=== PATIENT | male | born 1995 | race Caucasian/White ===

== ENCOUNTER 2020-06-09 08:23 | Emergency (ER) | payer OTHER, SELFPAY ==
[2020-06-09 08:32] VITALS: BP 149/75; PULSE 93; RESP 14; TEMP 37.2; O2SAT 100; BMI 38.2
[2020-06-09] MEDS: Fluorescein Sodium STRIP 1 STRIP EYE-LEFT (09:00)
[2020-06-09] MEDS: Tetracaine HCl/PF 0.5% Oph Sol 4 ML DROPS 1 DROP EYE-LEFT (09:00)
--- NOTE | 2020-06-09 09:02 | PC.NURSE ---
provider at bedside w dexter lamp for eye exam.
--- NOTE | 2020-06-09 09:04 | ED_ITS ---
HPI - Eye Problem General Chief complaint: Eye Problems Stated complaint: vomiting,eye pain Time Seen by Provider: 06/09/20 08:47 Source: patient Mode of arrival: ambulatory Limitations: no limitations History of Present Illness HPI Narrative: Left eye pain since yesterday. Patient tells me gradual pain in left eye. Was itching and playing with eye and now woke up with eyelid swelling. No vision changes. Does report pain behind the eye. No contact use. Has LAO on that side. Patient tells me he has also had chronic vomiting. Seen by GI and is taking compazine and zofran PRN, also dietary changes. He has now been referred to neurology as his GI doctor thinks this may be abdominal migraines. He has appointment 06/29. chief complaint: eye pain Onset (ago): day(s) (yesterday ) Onset description: gradual Duration: constant Location: left eye Eye Symptoms: pain and itching Place: home Mechanism: none Severity: moderate If Pain, Quality: sharp Associated symptoms: none Treatments Prior to Arrival: none Related Data Previous Rx's Medication Instructions Recorded [id number]-usdrxybkerucm-wbaa 1 cap PO Q8H PRN #10 cap 06/09/20 [Fioricet] Allergies Allergy/AdvReac Type Severity Reaction Status Date / Time No Known Allergies Allergy Unverified 05/14/20 19:48 [No Known Allergies*] Review of Systems Review of Systems: Yes all other systems are reviewed and are negative Constitutional: Constitutional: Reports no additional constitutional complaints, Denies body ache(s), Denies chills, Denies fever(s), Denies headache(s) and Denies weakness Eyes: Eyes: Reports no additional eye complaints, Denies blurry vision, Denies exophthalmos, Denies change in vision, Denies decreased night vision, Denies diplopia, Denies eye discharge, Reports irritation, Denies loss of peripheral vision, Denies loss of vision, Denies other visual disturbances, Reports photophobia, Denies spots in vision and Denies tunnel vision Comments: Retrorbital pain, eyelid swelling ENT: Reports system reviewed and no additional complaints, except as documented, Denies dizziness, Denies headache(s), Denies nasal congestion, Denies nasal discharge and Denies neck pain Cardiovascular: Cardiovascular: Reports no additional cardiovascular compl aints, Denies chest pain, Denies leg edema and Denies dyspnea Respiratory: Respiratory: Reports no additional respiratory complaints, Denies cough and Denies dyspnea Gastrointestinal: Gastrointestinal: Reports no additional gastrointestinal complaints, Denies abdominal pain, Denies diarrhea, Denies nausea, Reports vomiting and Denies hematemesis Genitourinary: Genitourinary: Denies urinary incontinence Musculoskeletal: Musculoskeletal: Reports no additional musculoskeletal complaints, Denies back pain, Denies arthralgias, Denies joint swelling, Denies neck pain, Denies numbness and Denies tingling Integumentary/Breasts: Skin/Breast: Reports system reviewed and no additional complaints, except as docu and Denies rash Neurologic: Reports system reviewed and no additional complaints, except as documented, Denies Abnormal speech present, Denies dizziness, Denies heada jimbo(s), Denies loss of vision, Denies numbness, Denies tingling and Denies weakness PMFSH Past Medical History Attestation statement: The following information was validated with the patient. Source: nursing notes reviewed Medical History Gastroparesis Social History Social History Alcohol intake: current Alcohol intake frequency: holidays/special occasions only Alcohol type: beer Smoking Status: Never smoker Use of substances other than those prescribed or required for medical reasons: No Advance Directives: Yes Advance Directives Information Provided: Yes Advance Directives on File: No Physical Exam Vital Signs: Vital Signs: Vital Signs Temp Pulse Resp BP Pulse Ox 06/09/20 08:32 99 F 93 14 149/75 H 100 Body Mass Index 38.2 Const: General: cooperative, healthy appearing, comfortable and no acute distress Orientation/consciousness: patient oriented x3 Limitations: no limitations HENMT: Head: Yes normal to inspection Ears: hearing grossly normal bilaterally General nose exam: Normal external nose present Face and sinus: Yes normal facial exam Mouth: Normal oral and palatal mucosa present Throat: Yes posterior oropharynx normal Eyes: Other: Fluorescein stain done with no uptake, abrasion or FB noted. IOP 12 bilateral. See visual acuity exam. General: appearance normal, both eyes and all related structures Visual Cole: normal visual cole by confrontation Alignment and Position: alignment normal Periorbital: periorbital findings normal Eyelids: Yes eyelids normal (mild upper eyelid medial swelling with mild erythema. NO obvious stye) Conjunctivae: conjunctivae normal Sclerae: sclerae normal Corneas: corneas normal Pupils: Equal, round and reactive pupils present EOM: EOMs intact bilaterally Direct Ophthalmoscopy: normal light reflex, no photophobia (mild photophobia), anterior chamber normal and photophobia Neck: Neck: Yes normal visual inspection Chest: Chest palpation & inspection: normal inspection of the chest Resp: Effort & Inspection: normal respiratory effort Auscultation: clear to auscultation bilaterally Cardio: Rate: regular rate Rhythm: regular rhythm Peripheral pulses: Peripheral pulses 2+ throughout GI: Inspection: Yes normal to inspection Palpation (GI): Soft to palpation and nontender Auscultation: normal bowel sounds Back/Spine/Pelvis: Thoracic/Lumbar Spine: thoracic and lumbar spine normal to inspection Skin: General skin exam: no rashes or lesions noted Neuro: General: patient oriented x3, no focal motor deficits and normal sensation to monofilament Cranial nerves: Yes Equal, round and reactive pupils present Cognition (Neuro): normal cognition Speech: No Abnormal speech present Gait exam (Neuro): Normal gait present Motor exam (neuro): 5/5 motor strength present throughout Extrem: General: Yes normal to inspection Course Course Course Narrative: CT head unremarkable. Eye exam is normal. Pain is improved after receiving IV Toradol, Reglan, Benadryl and normal saline bolus. Likely migraine. Reviewed findings with the patient. Reviewed worrisome signs and symptoms and when to return to the emergency department. Comfortable discharge home. MDM - Eye Problem MDM Narrative Medical decision making narrative: left retro-orbital eye pain since yesterday with no trauma or vision changes. Normal exam and IOP measurements. Less likely conjunctival FB, glaucoma. More likely migraine. Will check CT head. Also reporting chronic vomiting, no abdomial pain. W/u with GI unremarkable. Referred to neuro. Will check CT head to r/o ICH/lesion in setting of LAO/eye pain/vomiting. 1150- CT head negative less likely underlying ICH or lesion. more likely migraine with symptoms improved with IV Benadryl, Reglan, Toradol. Patient has follow-up with Neurology 06/29. Imaging Data CT head: Attestation: I personally reviewed and interpreted this imaging study as follows: My impression: unremarkable Radiologist's impression: FINDINGS: There is no evidence of acute intracranial hemorrhage or territorial infarction. No abnormal mass effect or midline shift is seen. Deras to white matter differentiation is well preserved. No extra-axial fluid collections are identified. The ventricles are normal in size. There is no abnormal attenuation within the brain parenchyma. The osseous structures and soft tissues are normal. The mastoid air cells and visualized portions of the paranasal sinuses are well aerated. IMPRESSION: No CT evidence of acute intracranial pathology. Discharge Plan Discharge Clinical Impression: Migraine Qualifiers: Migraine type: without aura Status migrainosus presence: without status migrainosus Intractability: not intractable Qualified Code(s): G43.009 - Migraine without aura, not intractable, without status migrainosus Patient Disposition: Home, Self-Care Instructions: Migraine Headache (ED) Additional Instructions: Warm compresses four times daily to affected side Prescriptions: New uqdksxdtrn-qjbbmucgcbzyp-svkv [Fioricet] 50-300-40 mg capsule 1 cap PO Q8H PRN (Reason: pain) Qty: 10 RF: 0 Referrals: Xiomara Patterson MD [Primary Care Provider] - 2 days Stand Alone Forms: Work/School Release Interventions: ED Discharge Assessment Last Done: 06/09/20 12:03 Discharge Date/Time: 06/09/20 12:10
--- NOTE | 2020-06-09 09:16 | CT_ITS ---
EXAMINATION: CT HEAD WITHOUT CONTRAST CLINICAL INFORMATION: Headache, vomiting. COMPARISON: None TECHNIQUE: Contiguous axial imaging was performed from the skull base to vertex without intravenous administration of contrast. This CT examination was performed using dose optimization techniques as appropriate, variously including the following: *Automated exposure control *Adjustment of mA and/or kV according to patient size (this includes techniques or standardized protocols for targeted exams where dose is matched to indication/reason for exam; i.e. extremities or head) *Use of iterative reconstruction technique DLP: 756 mGy-cm FINDINGS: There is no evidence of acute intracranial hemorrhage or territorial infarction. No abnormal mass effect or midline shift is seen. Deras to white matter differentiation is well preserved. No extra-axial fluid collections are identified. The ventricles are normal in size. There is no abnormal attenuation within the brain parenchyma. The osseous structures and soft tissues are normal. The mastoid air cells and visualized portions of the paranasal sinuses are well aerated. IMPRESSION: No CT evidence of acute intracranial pathology.
[2020-06-09] MEDS: Ketorolac Tromethamine 30 MG/ML VIAL IVPUSH (09:35)
[2020-06-09] MEDS: diphenhydrAMINE HCL 50 MG/ML VIAL 25 MG IVPUSH (09:35)
[2020-06-09] MEDS: 0.9 % Sodium Chloride 1,000 ML 999 ML IV (09:35)
[2020-06-09] MEDS: Metoclopramide HCl 10 MG/2 ML VIAL IVPUSH (09:36)
--- NOTE | 2020-06-09 09:43 | PC.NURSE ---
IV PLACED, MEDICATED PER EMAR. WCTM.
== END 2020-06-09 12:10 | disposition home or self-care (01) ==
PROVIDERS: Emergency Provider Emergency Medicine; PCP Internal Medicine
DX: G43.009 Migraine without aura, not intractable, without status migrainosus (principal)
CPT/HCPCS: 70450; 96361; 96374; 96375; 99284; J1200; J1885; J2765

== ENCOUNTER 2021-02-04 14:59 | Outpatient (REF) | payer BC, SELFPAY ==
[2021-02-04 15:39] LABS: MANUAL DIFF FLAG NO
[2021-02-04 15:43] LABS: Basophils Percent Auto 0.5 % (0-2); Eosinophils Absolute Auto 0.2 X10*3/uL (0.0-0.4); Hematocrit 48.2 % (42-52); Imm Gran Abs Auto 0.02 X10*3/uL (0.00-0.03); Imm Gran Pct Auto 0.3 % (0.0-0.4); Lymphocytes Absolute Auto 1.4 X10*3/uL (1.2-4.9); Lymphocytes Percent Auto 22.8 % (20-40); Mean Corpuscular HGB Conc 33.2 g/dl (31.0-36.0); Mean Corpuscular Hemoglobin 29.8 pg (27.0-33.0); Mean Corpuscular Volume 89.8 fL (80-98); Mean Platelet Volume 9.9 fL (9.4-12.4); Monocytes Absolute Auto 0.4 X10*3/uL (0.1-1.2); Monocytes Percent Auto 6.4 % (2-11); Platelet Count 275 X10*3/uL (160-400); Red Blood Count 5.37 X10*6/uL (4.60-5.80); Red Cell Distribution Width 11.8 % (11.0-16.0); White Blood Count 5.9 X10*3/uL (4.8-10.8)
[2021-02-04 16:07] LABS: Alanine Aminotransferase 53 U/L (0-40); Albumin Level 4.7 g/dL (3.5-5.0); Alkaline Phosphatase 90 U/L (39-117); Amylase 63 U/L (28-100); Anion Gap 12 (12-20); Aspartate Amino Transferase 26 U/L (5-37); Bilirubin Direct 0.2 mg/dL (0.0-0.5); Bilirubin Total 0.5 mg/dL (0.0-1.0); Blood Urea Nitrogen 14 mg/dL (9-16); Calcium 9.9 mg/dL (8.4-10.2); Carbon Dioxide 28 mmol/L (22-29); Chloride 103 mmol/L (96-108); Estimated Glomerular Filt Rate > 60; Glucose Random 123 mg/dL (60-115); Lipase 19 U/L (8-78); Sodium 139 mmol/L (135-145); Total Protein 7.6 g/dL (6.5-8.0)
[2021-02-04 16:25] LABS: Erythrocyte Sedimentation Rate 2 MM/HR (0-15)
== END 2021-02-04 15:00 | disposition home or self-care (01) ==
LOC: HO.LAB 14:59
PROVIDERS: PCP Internal Medicine; Visit Provider Psychiatry & Neurology Neurology
DX: G43.009 Migraine without aura, not intractable, without status migrainosus (principal)
CPT/HCPCS: 36415; 80048; 80076; 82150; 83690; 85025; 85652

== ENCOUNTER 2021-03-25 18:15 | Emergency (ER) | payer BC, SELFPAY ==
--- NOTE | ~2021-03-25 | XR_ITS ---
EXAMINATION: XR CHEST CLINICAL INFORMATION: Cough. COMPARISON: None TECHNIQUE: 2 views of the chest were obtained. FINDINGS: The lungs are clear. The cardiomediastinal silhouette is normal in size. There is no pleural effusion or pneumothorax. No acute osseous abnormality. XR/XR chest 2V IMPRESSION: No acute cardiopulmonary findings.
[2021-03-25 18:27] VITALS: BP 141/94; PULSE 93; RESP 18; TEMP 36.5; O2SAT 97; BMI 38.6
[2021-03-25] MEDS: Ondansetron ODT 4 MG TAB.RAPDIS TRANSLINGU (18:32)
[2021-03-25 18:54] LABS: COVID-19 Test Negative (Negative); IDNOW Serial# 9DD0AD1C
--- NOTE | 2021-03-25 20:12 | ED.URI ---
HPI - URI/Sore Throat General Chief Complaint: Nausea/Vomiting/Diarrhea Stated Complaint: Cough,Vomiting,Sob Time Seen by Provider: 03/25/21 19:45 Source: patient Mode of arrival: ambulatory Limitations: no limitations History of Present Illness HPI Narrative: 25-year-old male with a past medical history of gastroparesis and migraine headaches presenting to the ED with complaints of URI symptoms which include runny nose/nasal congestion and a productive cough with clear/white/blood streak sputum production for the past 2 weeks worse today. Reports that he also has intermittent headaches and has been having a headache since his symptoms started and is taking Fioricet for his pain. He reports symptomatic relief with his Fioricet. He reports that he has been taking Robitussin without coating and no symptomatic relief therefore he switched to DayQuil and only mild symptomatic relief. He denies any measured fevers, dizziness, neck pain/stiffness, chest pain, shortness of breath, dyspnea on exertion, orthopnea, abdominal pain, diarrhea, recent travel or sick contacts or any other symptoms complaints or concerns at this time. MD elicited complaint: cough, rhinorrhea, nasal congestion and other (Migraine headaches with associated nausea/vomiting) Pertinent past history: other (Migraine headache) Onset (ago): week(s) (Two weeks worse today) Consistency: constant and progressively worsening Severity: moderate Description of mucous: clear, watery, yellow and other (Blood streak) Able to tolerate fluids by mouth: Yes Exacerbating factors: other (Coughing) Relieving factors: nothing Associated symptoms: headache, rhinorrhea, nasal congestion and cough Treatments prior to arrival: other (See above) Related Data Previous Rx's Medication Instructions Recorded jnmjonhnur-yyktoupztuvua-vloytrhk 1 cap PO Q8H PRN #10 cap 06/09/20 50 mg-300 mg-40 mg capsule (Fioricet) acetaminophen 300 mg-codeine 30 mg 1 tab PO Q8H PRN #10 tab 03/25/21 tablet azithromycin 250 mg tablet See Rx Instructions .ROUTE 03/25/21 .COMPLEX #6 tab codeine 10 mg-guaifenesin 100 mg/5 5 ml PO Q6H PRN #120 ml 03/25/21 mL oral liquid (Guaifenesin AC) ibuprofen 800 mg tablet 800 mg PO Q8H PRN #14 tab 03/25/21 ondansetron HCl 4 mg tablet 4 mg PO Q8H PRN #14 tab 03/25/21 (Zofran) prednisone 20 mg tablet 40 mg PO DAILY 5 Days #10 tab 03/25/21 Allergies Allergy/AdvReac Type Severity Reaction Status Date / Time No Known Allergies Allergy Unverified 05/14/20 19:48 [No Known Allergies*] Review of Systems Review of Systems: Constitutional : No fevers, no chills, no night sweats, no malaise, no fatigue, No changes in activity, No lethargy, No recent prior head injury, No agitation ENT/Mouth : Positive nasal congestion/rhinorrhea No Ear Pain Eyes: No Eye Pain, No Swelling, No Redness, No Foreign Body, No Vision Changes Cardiovascular : No Chest Pain, No SOB Respiratory : Positive cough with sputum production Gastrointestinal : Positive nausea/vomiting, No abdominal Pain Genitourinary : No Dysuria, No Urinary Frequency, No Urinary Incontinence, No Urgency, No Flank Pain Musculoskeletal : No joint pain, No neck stiffness, No back pain/injury Skin : No lacerations Neuro : Positive headache, No unsteady gait, No Paresthesias, No Loss of Consciousness, No altered mental status, No dizziness Denies past medical history of HIV, recent trauma, coagulopathy, recent spinal/ epidural procedure, new medication, URI symptoms, close contacts with similar symptoms, tick bite, or known CO2 exposure. Yes all other systems are reviewed and are negative [facility] Past Medical History Attestation statement: The following information was validated with the patient. Medical History Gastroparesis Social History Social History Alcohol intake: current Alcohol intake frequency: holidays/special occasions only Alcohol type: beer Advance Directives: No Advance Directives Information Provided: Yes Physical Exam Vital Signs: Vital Signs: Last Vital Signs Temp 97.7 F 03/25/21 18:27 Pulse 93 03/25/21 18:27 Resp 18 03/25/21 18:27 BP 141/94 H 03/25/21 18:27 Pulse Ox 97 03/25/21 18:27 Body Mass Index 38.6 Vital signs have been reviewed as normal and appeared to be correct. Blood pressure hypertensive 141/94 Heart rate normal. Respiration rate normal. Temperature normal. Oxygen saturation normal. Appearance: Alert. Oriented X3. No acute distress. Head: Normal external exam. Normocephalic. Atraumatic. Able to rotate head bilaterally. Eyes: PERRLA. EOMI. No nystagmus noted. Conjunctiva and sclera normal. Eyelids normal. Corneal reflex normal. ENT: EAC normal. TM's Normal. Hearing normal. Pharynx normal. Uvula midline. tongue midline. Moist mucous membranes. No trismus noted. No drooling noted. No muffled voice noted. Neck: Normal inspection. Neck supple. FROM. No adenopathy. Thyroid Normal. No meningeal signs. No neck mass noted. CVS: Normal heart rate and rhythm. Heart sound normal. No murmurs noted. Pulses normal throughout. Respiratory: No respiratory distress. Painless inspiration. Breath sounds normal. No wheezes/rales/rhonchi noted. Chest nontender. No accessory muscle usage noted or decreased air movement noted. Back: Full range of motion noted. Skin: Skin warm and dry. Normal skin color. Normal skin turgor. No rashes/lesions/lacerations noted. Extremities: Extremities exhibit normal range of motion. Extremities nontender. Able to shrug shoulders bilaterally and keep up against resistance. Neuro: Oriented X 3. No motor deficit. No sensory deficit. Reflexes normal. Moving all extremities. No focal motor deficits. Cranial nerves II-XI intact bilaterally. Facial strength normal. Normal cognition. Speech normal. Gait normal. Strength 5/5 throughout. No pronator drift. No tremor noted. No fasciculations noted. Muscle tone normal throughout. No asterixis noted. Zilfwp-ko-offo test normal. Heel to roa test normal. Tandem gait normal. Does not sway with eyes open. Romberg test negative. Rapid alternating movement upper extremity normal. Rapid alternating movement lower extremity normal. Hand drop from overhead-Mrs. face. No rigidity noted. NIHSS score 0. Course Course Course Narrative: 25-year-old male presenting to the ED with URI symptoms for the past 2 weeks worse today with associated migraine headaches with nausea/vomiting. He reports his migraine headache is similar when compared to prior. Multiple zwfp-eqv-xpaqztb treatments in mild to no symptomatic relief. No recent travel or sick contacts. On exam patient is alert and oriented x3. Not in any acute distress. No signs of sepsis. Neck is soft and supple. Patient has full range of motion of the neck. Lungs clear to auscultation. CV RRR. Rapid COVID negative and chest x-ray negative for any acute processes. Therefore at this time will DC home with antibiotics and symptomatic treatment instructions to return if any new or worsening symptoms to follow up with primary care provider. Patient understands agrees with this plan. MDM - URI/Sore Throat Medical Records Attestation: I reviewed the patient's medical records. Lab Data Attestation: I reviewed the patient's lab results. Labs: Lab Results 03/25/21 Range/Units 18:33 COVID-19 ([facility]) Negative (Negative) COVID-19 Clin Com See Note Discharge Plan Discharge Clinical Impression: Migraine headache, Acute upper respiratory infection Patient Disposition: Home, Self-Care Instructions: Migraine Headache (ED), Upper Respiratory Infection (ED) Prescriptions: New azithromycin 250 mg tablet See Rx Instructions .ROUTE .COMPLEX Qty: 6 RF: 0 ibuprofen 800 mg tablet 800 mg PO Q8H PRN (Reason: pain) Qty: 14 RF: 0 ondansetron HCl [Zofran] 4 mg tablet 4 mg PO Q8H PRN (Reason: nausea and vomiting) Qty: 14 RF: 0 prednisone 20 mg tablet 40 mg PO DAILY 5 Days Qty: 10 RF: 0 acetaminophen-codeine 300-30 mg tablet 1 tab PO Q8H PRN (Reason: pain) Qty: 10 RF: 0 codeine-guaifenesin [Guaifenesin AC] 10-100 mg/5 mL liquid 5 ml PO Q6H PRN (Reason: cold symptoms) Qty: 120 RF: 0 No Action tnoejvbrlt-eaxzlvsjliyho-qbbo [Fioricet] 50-300-40 mg capsule 1 cap PO Q8H PRN (Reason: pain) Qty: 10 RF: 0 Referrals: Physician,Unknown [Primary Care Provider] - 2 days (your pcp) Stand Alone Forms: Work/School Release Print Language: Angolan
[2021-03-25 20:23] VITALS: BP 136/87; PULSE 86; RESP 16; O2SAT 97
[2021-03-25] MEDS: guaiFEN/Codeine SF 200/20/10ML 10 ML LIQUID PO (20:43)
== END 2021-03-25 20:47 | disposition home or self-care (01) ==
PROVIDERS: Emergency Provider Internal Medicine
DX: G43.909 Migraine, unspecified, not intractable, without status migrainosus (principal); J06.9 Acute upper respiratory infection, unspecified; R05 Cough; R06.02 Shortness of breath; Z20.822 Contact with and (suspected) exposure to COVID-19; Z79.899 Other long term (current) drug therapy
CPT/HCPCS: 36415; 71046; 87635; 99283

== ENCOUNTER 2021-09-16 13:41 | Outpatient (REF) | payer BC, SELFPAY ==
[2021-09-16 14:36] LABS: Anion Gap 14 (12-20); Blood Urea Nitrogen 10 mg/dL (9-16); Calcium 10.1 mg/dL (8.4-10.2); Carbon Dioxide 26 mmol/L (22-29); Chloride 107 mmol/L (96-108); Estimated Glomerular Filt Rate > 60; Glucose Random 99 mg/dL (60-115); Potassium 4.5 mmol/L (3.3-5.1); Sodium 142 mmol/L (135-145)
[2021-09-16 14:55] LABS: Erythrocyte Sedimentation Rate 2 MM/HR (0-15)
[2021-09-17 05:11] LABS: Lyme Abs Screen <0.90 index
[2021-09-17 08:21] LABS: Syphilis Screen Nonreactive (Nonreactive)
[2021-09-17 12:36] LABS: Anti Nuclear Antibody Screen NEGATIVE (NEGATIVE)
== END 2021-09-16 13:42 | disposition home or self-care (01) ==
LOC: HO.LAB 13:41
PROVIDERS: Visit Provider Psychiatry & Neurology Neurology
DX: G43.009 Migraine without aura, not intractable, without status migrainosus (principal)
CPT/HCPCS: 36415; 80048; 85652; 86038; 86039; 86617; 86618; 86780

== ENCOUNTER 2022-11-08 04:32 | Emergency (ER) | payer BC, SELFPAY ==
--- NOTE | ~2022-11-08 | XR_ITS ---
EXAMINATION: XR CHEST CLINICAL INFORMATION: Cough COMPARISON: None TECHNIQUE: 2 views of the chest were obtained. FINDINGS: Normal symmetric lung volumes. No parenchymal consolidation. No pleural effusion. No pneumothorax. Cardiomediastinal silhouette and pulmonary vascularity are within normal limits. No acute osseous abnormalities. XR/XR chest 2V IMPRESSION: Clear lungs.
[2022-11-08 04:57] VITALS: BP 144/89; PULSE 66; RESP 16; TEMP 36.7; O2SAT 97; BMI 38.0
[2022-11-08 05:29] VITALS: BP 126/83; PULSE 81; RESP 18; TEMP 36.4; O2SAT 97
[2022-11-08 06:00] LABS: COVID-19 Test Negative (Negative); IDNOW Serial# 16C4AD1C; IDNOW Serial# BCCEAD1C; Influenza A Negative (Negative); Influenza B2 Negative (Negative)
--- OUTSIDE RECORDS SUMMARY | 2022-11-08 06:02 | XMS_ITS | Continuity of Care Document ---
:1995 Author Organization [facility] Address Unavailable , Care Team Providers Name Role Phone Isabel BARROS, Destinee Mooney Primary Care Physician Encounter [facility] Date(s): 11/16/21 - 12/16/21 [facility] Immunizations Given and Recorded Vaccine Date Status Refusal Reason SARS-CoV-2 (COVID-19) Ad26 vaccine 01/15/21 Given
--- NOTE | 2022-11-08 06:23 | ED.URI ---
HPI - URI/Sore Throat General Chief Complaint: Upper Respiratory Symptoms Stated Complaint: Coughing, stuffy, insomnia Time Seen by Provider: 11/08/22 06:18 Source: patient Mode of arrival: ambulatory Limitations: no limitations History of Present Illness HPI Narrative: Patient comes emergency room complaining of right ear pain for which he already received antibiotics and also stuffy nose. Patient states he has been having the symptoms for over 2 weeks. Patient complaining of coughing, no fever chills Related Data Previous Rx's Medication Instructions Recorded axmqezrvzg-qwnmptuuiijyy-bxugnhmd 1 cap PO Q8H PRN pain #10 caps 06/09/20 50 mg-300 mg-40 mg capsule (Fioricet) acetaminophen 300 mg-codeine 30 mg 1 tab PO Q8H PRN pain #10 tabs 03/25/21 tablet azithromycin 250 mg tablet See Rx Instructions PO .COMPLEX #6 03/25/21 tabs codeine 10 mg-guaifenesin 100 mg/5 5 ml PO Q6H PRN cold symptoms #120 03/25/21 mL oral liquid (Guaifenesin AC) mL cyclobenzaprine 10 mg tablet 10 mg PO Q8H Muscle spasm #10 tabs 03/25/21 ibuprofen 800 mg tablet 800 mg PO Q8H PRN pain #14 tabs 03/25/21 ondansetron HCl 4 mg tablet 4 mg PO Q8H PRN nausea and 03/25/21 (Zofran) vomiting #14 tabs prednisone 20 mg tablet 40 mg PO DAILY rash 5 days #10 tabs 03/25/21 azithromycin 250 mg tablet 250 mg PO DAILY 4 days #4 tabs 03/26/21 (Zithromax Z-Larry) codeine 10 mg-guaifenesin 100 mg/5 5 ml PO Q6H PRN cough #120 mL 03/26/21 mL oral liquid (Guaifenesin AC) cyclobenzaprine 5 mg tablet 5 mg PO TID PRN muscle spasm #10 03/26/21 tabs ondansetron HCl 4 mg tablet 4 mg PO Q6H PRN nausea and 03/26/21 (Zofran) vomiting #10 tabs prednisone 20 mg tablet 40 mg PO DAILY 3 days #6 tabs 03/26/21 benzonatate 100 mg capsule 100 mg PO TID PRN cough #14 caps 11/08/22 levofloxacin 500 mg tablet 500 mg PO DAILY #9 tabs 11/08/22 Allergies Allergy/AdvReac Type Severity Reaction Status Date / Time No Known Allergies Allergy Unverified 05/14/20 19:48 [No Known Allergies*] Review of Systems Review of Systems: Constitutional : No Weight loss, No Fever, No Chills, No Night Sweats, No Fatigue, No Malaise ENT/Mouth : N complaining of hoarse voice, no trouble swallowing, complaining of nasal congestion Eyes: No Eye Pain, No Swelling, No Redness, No Foreign Body, No Discharge, No Vision Changes Cardiovascular : No Chest Pain, No SOB, No Dyspnea on Exertion, No Orthopnea, No Edema, No Palpitations Respiratory : Complaining of Cough, No Sputum, No Wheezing, No Smoke Exposure, No Dyspnea Gastrointestinal : No Nausea, No Vomiting, No Diarrhea, No Constipation, No abdominal Pain, No Hematochezia, No Melena Genitourinary : no irregular bleeding, No Dysuria, No Urinary Frequency, No Hematuria, No Urinary Incontinence, No Urgency, No Flank Pain, No Urinary Flow Changes, No Hesitancy Musculoskeletal : No joint pain, No Myalgias, No Joint Swelling Skin : No Skin Lesions, No rash Neuro : No Weakness, No Numbness, No Paresthesias, No Loss of Consciousness, No Dizziness, No Headache Psych : No Anxiety/Panic, No Depression, No SI/HI/AH/VH, No Social Issues, Heme/Lymph: No Bruising, No Bleeding,No Lymphadenopathy Endocrine : No Polyuria, No Polydipsia, No Temperature Intolerance FORMERLY [facility] Past Medical History Medical History Gastroparesis Social History Social History Alcohol intake: current Alcohol intake frequency: holidays/special occasions only Alcohol type: beer Advance Directives: No Physical Exam Vital Signs: Vital Signs: Last Vital Signs Temp 97.6 F 11/08/22 05:29 Pulse 81 11/08/22 05:29 Resp 18 11/08/22 05:29 BP 126/83 11/08/22 05:29 Pulse Ox 97 11/08/22 05:29 O2 Del Method 11/08/22 05:29 BMI result Body Mass Index 38.0 Const: Other: Appearance: Alert. Oriented X3. No acute distress. Eyes: Pupils equal, round and reactive to light. ENT: Erythematous oropharynx, otitis media on the right side Neck: Normal inspection. Neck supple. No lymph nodes noted. No crepitus CVS: Normal heart rate and rhythm. Pulses normal. Normal S1 and S2 Respiratory: No respiratory distress. Breath sounds normal. No Wheezing. No rales Abdomen: Soft and nontender. No rigidity. No distention. Skin: Skin warm and dry. Normal skin color. Normal skin turgor. Extremities: No lower extremity edema. No Lacerations. No Rash Neuro: Oriented X 3. No motor deficit. No sensory deficit. Moving all extremities. No slurred speech. CN 2 through 12 grossly intact Psych: calm, cooperative, normal affect Course Course Course Narrative: -patient completed a course of Augmentin for the ear infection, still present. We will try levofloxacin this time. -chest x-ray negative Medical Decision Making Medical Decision Making MDM Narrative: -patient still has otitis media, failed treatment with Augmentin, will try levofloxacin -patient given p.o. dexamethasone and viscous lidocaine for comfort. -patient requesting a prescription for cough Lab Data Labs: Lab Results 11/08/22 11/08/22 Range/Units 05:36 05:36 COVID-19 (NAWAF) Negative (Negative) COVID-19 Clin Com See Note Influenza Type A (TITO) Negative (Negative) Influenza Type B (TITO) Negative (Negative) Influenza A & B Note See Note Discharge Plan Discharge Clinical Impression: Otitis media, Bronchitis Patient Disposition: Home, Self-Care Instructions: Ear Infection (ED), Acute Bronchitis (ED) Additional Instructions: Please follow-up with your primary care physician tomorrow. If you have any worsening or new symptoms, please return to the emergency room or call 911 Prescriptions: New benzonatate 100 mg capsule 100 mg PO TID PRN (Reason: cough) Qty: 14 0RF levofloxacin 500 mg tablet 500 mg PO DAILY Qty: 9 0RF No Action jjucifbnle-vqnxyazrsrhvn-btde [Fioricet] 50-300-40 mg capsule 1 cap PO Q8H PRN (Reason: pain) Qty: 10 0RF azithromycin 250 mg tablet See Rx Instructions .ROUTE .COMPLEX Qty: 6 0RF Rx Instructions: take 500 mg today (day 1), then 250 mg for 4 days (days 2-5) ibuprofen 800 mg tablet 800 mg PO Q8H PRN (Reason: pain) Qty: 14 0RF ondansetron HCl [Zofran] 4 mg tablet 4 mg PO Q8H PRN (Reason: nausea and vomiting) Qty: 14 0RF prednisone 20 mg tablet 40 mg PO DAILY 5 Days Qty: 10 0RF acetaminophen-codeine 300-30 mg tablet 1 tab PO Q8H PRN (Reason: pain) Qty: 10 0RF codeine-guaifenesin [Guaifenesin AC] 10-100 mg/5 mL liquid 5 ml PO Q6H PRN (Reason: cold symptoms) Qty: 120 0RF cyclobenzaprine 10 mg tablet 10 mg PO Q8H Qty: 10 0RF ondansetron HCl [Zofran] 4 mg tablet 4 mg PO Q6H PRN (Reason: nausea and vomiting) Qty: 10 0RF azithromycin [Zithromax Z-Larry] 250 mg tablet 250 mg PO DAILY 4 Days Qty: 4 0RF Rx Instructions: start on day 2 of therapy codeine-guaifenesin [Guaifenesin AC] 10-100 mg/5 mL liquid 5 ml PO Q6H PRN (Reason: cough) Qty: 120 0RF Rx Instructions: This medication may cause drowsiness, use with caution no driving for 4 hours after taking cyclobenzaprine 5 mg tablet 5 mg PO TID PRN (Reason: muscle spasm) Qty: 10 0RF prednisone 20 mg tablet 40 mg PO DAILY 3 Days Qty: 6 0RF
[2022-11-08] MEDS: levoFLOXacin 500 MG TABLET PO (06:37)
[2022-11-08] MEDS: dexAMETHasone 4 MG TABLET PO (06:37)
[2022-11-08] MEDS: Lidocaine HCl Viscous 2 % 15 ML SOLUTION MUCOUS MEM (06:38)
== END 2022-11-08 06:47 | disposition home or self-care (01) ==
PROVIDERS: Emergency Provider Emergency Medicine; PCP Internal Medicine
DX: H66.91 Otitis media, unspecified, right ear (principal); J40 Bronchitis, not specified as acute or chronic; Z20.822 Contact with and (suspected) exposure to COVID-19
CPT/HCPCS: 71046; 87502; 87635; 99282; 99283; J8540

== ENCOUNTER → 2025-05-30 13:48 | Outpatient (BNVA) | payer OTHER, SELFPAY | PROVIDERS: PCP Internal Medicine; Visit Provider Physician Assistant | DX: S01.81XA Laceration without foreign body of other part of head, initial encounter (principal); W20.8XXA Other cause of strike by thrown, projected or falling object, initial encounter; Y93.89 Activity, other specified; Y92.9 Unspecified place or not applicable; Y99.9 Unspecified external cause status | CPT/HCPCS: 12001; 99202 ==

== ENCOUNTER 2025-05-30 15:43 | Outpatient (AMB) | payer OTHER, SELFPAY ==
[2025-05-30 15:51] VITALS: BP 124/72; PULSE 75; RESP 15; TEMP 36.9; O2SAT 99; BMI 40.3
--- NOTE | 2025-05-30 15:51 | AM.OFFWIN_ITS ---
Intake Vital Signs 05/30/25 15:51 Height 6 ft Weight 297 lb BMI 40.3 BP 124/72 Blood Pressure Location Rt brachial Position Sitting Respiration 15 Pulse 75 Pulse Source Pulse Oximeter Temp 98.4 F Temp Source Oral Pulse Oximetry (%) 99 Oxygen Delivery Method Room Air Intake Visit Reasons: EP split on forehead Intake Note: Pt is here today c/o laceration between eye brows: Due to cutting wood today at home today Allergies No Known Allergies (No Known Allergies*) Allergy (Unverified 05/30/25 15:52) HPI HPI Comments History of Present Illness Details This is a 29-year-old male presenting for evaluation of a facial laceration. Patient states at 1:00 p.m. he was in [facility] cutting wood with an axe. He was wearing safety glasses when a piece of wood hit the axe awkwardly, bounced and hit him in the face. There was no loss of consciousness. Patient is unaware if the wood itself cut his face or if his safety glasses cut him. Patient's tetanus immunization was updated 2 years ago. Patient denies having any visual changes, pain in his eyes, headache or lightheadedness. Patient cleaned the lesion out with soap and water prior to coming for medical evaluation. [facility]LY [facility] Medical History Gastroparesis Social History Alcohol intake: current Alcohol intake frequency: holidays/special occasions only Alcohol type: beer Review of Systems Const Details: No history of LOC following incident. All systems reviewed & are unremarkable except as noted in HPI and below Reports no additional complaints and Denies headache(s) Eyes Denies blurry vision, Denies exophthalmos, Denies irritation, Denies loss of peripheral vision, Denies loss of vision and Denies other visual disturbances ENT Reports no additional complaints, Denies dizziness, Denies headache(s) and Denies disequilibrium Card Denies syncope Musc Reports no additional complaints and Denies abnormal gait Skin/Breast Details: laceration adjacent to left eyebrow Reports bleeding lesions Neuro Reports no additional complaints, Denies abnormal gait, Denies confusion, Denies dizziness, Denies syncope, Denies headache(s), Denies loss of vision, Denies Se nsory deficit (Neuro) and Denies disequilibrium Psych Reports no additional complaints and Denies confusion Physical Exam Vital Signs: BMI result Body Mass Index 40.3 Const General: cooperative, healthy appearing, comfortable, no acute distress, well developed, alert, awake and Physically active; No acute distress, confusion, diaphoretic, ill appearing or lethargic Nutritional Appearance: overweight Orientation/consciousness: No confusion and No lethargic Limitations: no limitations HEENT Other: laceration adjacent to left medial eyebrow; no other trauma noted, no pain to palpation of the facial bones Head: Yes laceration Eyes General: appearance normal, both eyes and all related structures Visual Cole: normal visual cole by confrontation Alignment and Position: alignment normal Eyelids: Yes eyelids normal Conjunctivae: conjunctivae normal Pupils: Equal, round and reactive pupils present and Pupil accommodation reflex normal Direct Ophthalmoscopy: normal light reflex and no photophobia Skin Other: 1.50cm linear laceration located at the medial aspect of the left eyebrow extending to the forehead; no evidence of a retained foreign body Trauma: laceration left face linear Neuro General: No confusion Cranial nerves: Yes CN's II-XII intact bilaterally, Yes Facial sensation intact/muscles of mastication intact and Yes Equal, round and reactive pupils present Sensory Exam: No Sensory deficit (Neuro) Psych Appearance: grossly normal Mental Status: mental status grossly normal Speech and movement: Normal speech and movement present Insight: Good insight present (Psych) Judgement: Good judgement present (Psych) Office Procedures Laceration Repair Procedure Location: 1.50 cm linear laceration medial to left eyebrow EMLA: 2% Lidocaine Text: After discussion of risk and benefits, written informed consent was obtained. The area was cleaned, prepped, and draped using sterile technique. The wound was debrided of any foreign material or devitalized tissue. Wound edges were approximated and closed using 5-0 Prolene suture, six simple interrupted sutures placed for approximation and closure of laceration. Standard wound dressing was applied. Wound care instructions were given as well as head injury precautions to the patient's who was present. The patient tolerated the procedure well. The patient was instructed to return for increased redness or red streaking, pain, swelling, pus, fevers, chills, or any other signs or symptoms of infection or worsening. Patient was instructed to return for suture removal in 7 days. Assessment & Plan Assessment & Plan (1) Facial laceration: Comment: This laceration was approximated and closed with 6 simple interrupted 5-0 Prolene sutures. Patient tolerated the procedure well and his tetanus immunization was reportedly updated in 2022. Code(s): S01.81XA - Laceration without foreign body of other part of head, initial encounter Qualifiers: Encounter type: initial encounter Qualified Code(s): S01.81XA - Laceration without foreign body of other part of head, initial encounter Plan: Wound care instructions were given to the patient and his as well as head injury precautions. Work note is provided through Monday and he will return in 7 days for suture removal, sooner for any signs of infection. Medications: Discontinued acetaminophen-codeine 300-30 mg Discontinued Reason: Patient no longer taking 1 tab PO Q8H PRN 10 tabs 0RF pain codeine-guaifenesin 10-100 mg/5 mL (Guaifenesin AC) Discontinued Reason: Patient Completed Course 5 mL PO Q6H PRN 120 mL 0RF cold symptoms ondansetron HCl (Zofran) Discontinued Reason: Patient no longer taking 4 mg PO Q8H PRN 14 tabs 0RF nausea and vomiting prednisone Discontinued Reason: Patient no longer taking 40 mg (2 x 20 mg) PO DAILY 5 days 10 tabs 0RF rash cyclobenzaprine Discontinued Reason: Patient no longer taking 10 mg PO Q8H 10 tabs 0RF Muscle spasm ondansetron HCl (Zofran) Discontinued Reason: Patient no longer taking 4 mg PO Q6H PRN 10 tabs 0RF nausea and vomiting mxsdtvsber-dbnlnjjynskbe-nizk 50-300-40 mg (Fioricet) Discontinued Reason: Patient no longer taking 1 cap PO Q8H PRN 10 caps 0RF pain azithromycin Discontinued Reason: Patient Completed Course take 500 mg today (day 1), then 250 mg for 4 days (days 2-5) 6 tabs 0RF ibuprofen Discontinued Reason: Patient no longer taking 800 mg PO Q8H PRN 14 tabs 0RF pain azithromycin (Zithromax Z-Larry) start on day 2 of therapy Discontinued Reason: Patient no longer taking 250 mg PO DAILY 4 days 4 tabs 0RF codeine-guaifenesin 10-100 mg/5 mL (Guaifenesin AC) This medication may cause drowsiness, use with caution no driving for 4 hours after taking Discontinued Reason: Patient Completed Course 5 mL PO Q6H PRN 120 mL 0RF cough cyclobenzaprine Discontinued Reason: Patient no longer taking 5 mg PO TID PRN 10 tabs 0RF muscle spasm prednisone Discontinued Reason: Patient Completed Course 40 mg (2 x 20 mg) PO DAILY 3 days 6 tabs 0RF benzonatate Discontinued Reason: Patient Completed Course 100 mg PO TID PRN 14 caps 0RF cough levofloxacin Discontinued Reason: Patient no longer taking 500 mg PO DAILY 9 tabs 0RF Coding Level of Care Code New Pt Level 4 (99371) Diagnoses Facial laceration, initial encounter S01.81XA Encounter type: initial encounter Time Spent (min) 45
== END 2025-05-30 16:57 | disposition home or self-care (01) ==
PROVIDERS: PCP Internal Medicine; Visit Provider Physician Assistant
DX: S01.81XA Laceration without foreign body of other part of head, initial encounter (principal)

== ENCOUNTER 2025-06-05 14:44 | Outpatient (AMB) | payer OTHER, SELFPAY ==
[2025-06-05 14:50] VITALS: BP 130/80; PULSE 79; TEMP 36.7; O2SAT 99
--- NOTE | 2025-06-05 14:50 | AM.OFFWIN_ITS ---
Intake Vital Signs 06/05/25 14:50 Height 6 ft BP 130/80 Blood Pressure Location Lt brachial Position Sitting Pulse 79 Pulse Source Pulse Oximeter Temp 98.1 F Temp Source Oral Pulse Oximetry (%) 99 Oxygen Delivery Method Room Air Intake Visit Reasons: EP Headache/forehead stitch removal Allergies No Known Allergies (No Known Allergies*) Allergy (Verified 06/05/25 14:50) Do you need a note to return to daycare/school/sports/work: Yes HPI HPI Comments History of Present Illness Details History of Present Illness - The patient is a 29-year-old male pres enting with a forehead laceration. - The laceration was caused by a piece o f wood impacting the forehead, displacing safety glasses and resulting in a cut. - The injury occurred last , wit h a recommendation to remove stitches after one week. - The patient reports no signs of infect ion, such as redness or pus, but notes pain and scabbing. - Six stitches were applied, and the pat ient has been monitoring the wound closely. - The patient has diabetes mellitus, o [facility] further details on its management were not discussed. Physical Exam General: Cooperative, healthy appearing, comfortable, no acute distress and well developed Orientation: Patient oriented x3 Limitations: No limitations Head: Normal to inspection Respiratory: Normal respiratory effort and able to speak in complete sentences. Clear to auscultation bilaterally Cardiovascular: Regular rate and rhythm. Normal S1 and S2 Skin: Laceration noted between the eyebrows vertically with #6 sutures intact with scabbing noted. Procedure - Area cleaned with normal saline and al cohol. #6 SIS removed from the forehead. Steri strips were applied. Procedure was well tolerated. No complications noted. Patient was informed and verbally consented to the use of an ambient scribe for clinic note documentation during this visit. [facility] Medical History Gastroparesis Social History Alcohol intake: current Alcohol intake frequency: holidays/special occasions only Alcohol type: beer Review of Systems Const All systems reviewed & are unremarkable except as noted in HPI and below Physical Exam Vital Signs: Last Vital Signs Temp 98.1 F 10/09/25 14:50 Pulse 79 06/05/25 14:50 BP 130/80 06/05/25 14:50 Pulse Ox 99 06/05/25 14:50 Oxygen Delivery Method Room Air 06/05/25 14:50 Assessment & Plan Assessment & Plan (1) Visit for suture removal: Code(s): Z48.02 - Encounter for removal of sutures Plan Most likely healing laceration and here for suture removal plan - Stitches to be removed as the wound shows no signs of infection and has healed well. - Instructions given to keep the wound dry and avoid ointments to prevent reopening. - allow steri strips to fall off on their own - keep wound clean and dry - Patient advised on potential scarring and methods to reduce scar visibility. Coding Level of Care Code Est Pt Level 3 (93506) Diagnoses Visit for suture removal Z48.02
== END 2025-06-05 15:55 | disposition home or self-care (01) ==
PROVIDERS: PCP Internal Medicine; Visit Provider Physician Assistant Medical
DX: Z48.02 Encounter for removal of sutures (principal)

== ENCOUNTER → 2025-06-05 14:44 | Outpatient (BNVA) | payer OTHER, SELFPAY | PROVIDERS: PCP Internal Medicine; Visit Provider Physician Assistant Medical | DX: S01.81XD Laceration without foreign body of other part of head, subsequent encounter (principal); W22.8XXD Striking against or struck by other objects, subsequent encounter; Z48.02 Encounter for removal of sutures | CPT/HCPCS: 99212 ==